=== PATIENT | female | born 1950 | race Caucasian/White ===

== ENCOUNTER 2024-07-23 11:48 | Emergency (ER) | payer OTHER ==
[2024-07-23] MEDS ORDERED: ALBUTEROL SO4 2.5/IPRATROPIUM 0.5 INH SOL 3 ML VIAL.NEB. NEB ONE (12:50)
[2024-07-23] MEDS: ALBUTEROL SO4 2.5/IPRATROPIUM 0.5 INH SOL 3 ML VIAL.NEB. NEB ONE (13:00)
[2024-07-23 13:02] LABS: ABSOLUTE IMMATURE GRANULOCYTES 0.01 x10^3/uL (0.0-0.031); BASOPHILS # 0.03 x10^3/uL (0.01-0.08); EOSINOPHILS # 0.33 x10^3/uL (0.04-0.36); HEMATOCRIT 44.1 % (34.1-44.9); HEMOGLOBIN 14.2 g/dL (11.2-15.7); MCHC 32.2 g/dl (32.2-35.5); MEAN CELL VOLUME 92.6 fl (79.4-94.8); MEAN PLT VOLUME 10.6 fl (9.4-12.3); MONOCYTE # 0.57 x10^3/uL (0.24-0.86); PLATELET COUNT 301 x10^3/uL (182-369); RDW 13.5 % (12.4-16.6)
[2024-07-23] MEDS ORDERED: methylPREDNISolone NA SUCC 125 MG/2 ML VIAL ONE (13:11)
[2024-07-23] MEDS: methylPREDNISolone NA SUCC 125 MG/2 ML VIAL IVPUSH ONE (13:21)
[2024-07-23] MEDS: methylPREDNISolone NA SUCC 125 MG/2 ML VIAL IM ONE (13:21)
[2024-07-23 13:32] LABS: POTASSIUM 5.3 mmol/L (3.5-5.1)
[2024-07-23 13:34] LABS: CALCIUM 10.4 mg/dL (8.5-10.1)
[2024-07-23 13:35] LABS: ALBUMIN 3.9 g/dl (3.4-5.0); BLOOD UREA NITROGEN 20.3 mg/dL (7-18); MAGNESIUM 1.9 mg/dL (1.8-2.4)
[2024-07-23 13:38] LABS: CREATININE 0.7 mg/dL (0.55-1.3)
[2024-07-23 13:39] LABS: BILIRUBIN,TOTAL 0.5 mg/dL (0.2-1); TOT PROT 7.8 g/dl (6.4-8.2)
[2024-07-23 13:44] LABS: VENOUS BASE EXCESS -0.2 mmol/L (-2-2); VENOUS O2 SATURATION 25.2 % (70-80); VENOUS PCO2 36.3 mmHg (38-52); VENOUS PH 7.432 (7.310-7.410)
[2024-07-23] MEDS: ALBUTEROL SULFATE 0.021% (0.63 MG/3 ML) VIAL.NEB NEB ONE (15:30)
[2024-07-23 15:52] VITALS: RESP 20
[2024-07-23 16:54] VITALS: BP 159/64; PULSE 82; TEMP 97.8
== END 2024-07-23 18:23 | disposition home or self-care (01) ==
LOC: JER 11:48
PROC: 3E033GC Introduction of Other Therapeutic Substance into Peripheral Vein, Percutaneous Approach (ICD-10-PCS; principal; 2024-07-23)
PROC: 3E0F7GC Introduction of Other Therapeutic Substance into Respiratory Tract, Via Natural or Artificial Opening (ICD-10-PCS; 2024-07-23)
PROC: 3E0F7GC Introduction of Other Therapeutic Substance into Respiratory Tract, Via Natural or Artificial Opening (ICD-10-PCS; 2024-07-23)
DX: J45.909 Unspecified asthma, uncomplicated (principal); R06.02 Shortness of breath; R07.89 Other chest pain
CPT/HCPCS: 0241U-QW; 36415; 71046-TC-FY; 80053; 82803; 83735; 83880; 84484; 85025; 93005; 93010; 99285-25

== ENCOUNTER 2024-09-15 10:56 | Emergency (ER) | payer OTHER ==
[2024-09-15 11:15] VITALS: BP 170/68; PULSE 59; RESP 17; TEMP 97.9; BMI 24.9
[2024-09-15] MEDS ORDERED: ACETAMINOPHEN 325 MG TABLET (FP) ONE (12:10)
[2024-09-15] MEDS ORDERED: LIDOCAINE 4% PATCH TP ONE (12:21)
[2024-09-15] MEDS: LIDOCAINE 5% TOPICAL PATCH TP ONE (12:27)
[2024-09-15] MEDS: ACETAMINOPHEN 325 MG TABLET (FP) PO ONE (12:27)
[2024-09-15] MEDS ORDERED: LIDOCAINE PATCH REMOVAL MC SCH (22:00)
== END 2024-09-15 13:06 | disposition home or self-care (01) ==
LOC: JER 10:56
DX: M25.512 Pain in left shoulder (principal); G89.29 Other chronic pain; I10 Essential (primary) hypertension
CPT/HCPCS: 99283-25